=== PATIENT | female | born 2000 | race Caucasian/White ===

== ENCOUNTER 2018-01-13 18:52 | Emergency (ER) | payer OTHER ==
[~2018-01-13] VITALS: Ht 162.6 cm; Wt 66.1 kg
[~2018-01-13 18:52] MED LIST: OXYC-57 PO
[2018-01-13 18:54] VITALS: TEMP 36.3; Ht 162.6 cm; Wt 66.1 kg
[2018-01-13] MEDS ORDERED: ACETAMINOPHEN 500 MG TAB PO STA (18:59)
[2018-01-13 19:26] LABS: BASO % 0.5 %; BASO ABS # 0.03 K/uL (0-0.2); EOS % 1.8 %; EOS ABS # 0.11 K/uL (0-0.5); HEMATOCRIT 41.4 % (37-47); HEMOGLOBIN 14.1 g/dL (12.0-16.0); LYMPH % 44.8 %; LYMPH ABS # 2.74 K/uL (1.2-3.4); MEAN CELL VOLUME 92.8 fL (80-100); MEAN CORPUSCULAR HEMOGLOBIN 31.6 pg (25-34); MEAN CORPUSCULAR HGB CONC 34.1 g/dl (32-36); MONO ABS # 0.43 K/uL (0.11-0.59); NEUT % 45.9 %; NEUT ABS # 2.81 K/uL (1.4-6.5); PLATELET COUNT 243 K/uL (130-400); RED CELL DISTRIBUTION WIDTH CV 12.1 % (11.5-14.5); RED CELL DISTRIBUTION WIDTH SD 41.2 fL (36.4-46.3); WHITE BLOOD COUNT 6.12 K/uL (4.8-10.8)
--- NOTE | 2018-01-13 19:28 | EMERGENCY ROOM VISIT NOTE ---
History Report prepared by Corey: Devi Enriquez Under the Supervision of: Dr. Keyon Washington M.D. First contact with patient: 18:57 Chief Complaint: HEADACHE Stated Complaint: NUMBNESS,DISORIENTATION,HEADACHE History of Present Illness The patient is a 17 year old female who presents to the Emergency Room with complaints of persistent headache that began two hours ago. She rates her pain a 3/10 in severity. She notes that she suddenly became lightheaded and disoriented. She then developed speech issues in which she could not answer questions. Per mother, the patient tried to send her a text message, though it did not make any sense. The patient states that she could not answer a family members question about where she went to school. She reports that she then developed right arm numbness that lasted for 20 minutes. She notes the headache followed the numbness. She notes the disorientation and speech issues lasted for one hour. She denies any other focal numbness to any other extremity. She denies any facial numbness. She denies any past similar symptoms. She notes there was nausea for a couple of minutes while in a car for seven minutes. She denies any motion sickness in the past. She notes dizziness when standing up. She notes that her thought processes are improved. She denies taking any medications to improve her headache. The patient notes that she was exercising this past week and randomly developed a bruise that has since resolved on her abdomen. She also notes a bump to her right ear. She denies any head injuries. She denies any underlying medical problems. She denies any history or family history of migraines. She denies any recent tick bites. Per mother, ticks are common at their home. Source of History: patient, parent Onset: two hours ago Position: head Symptom Intensity: 3/10 Quality: ache Timing: other (persistent) Associated Symptoms: + nausea, + numbness (right arm) Note: She denies any head injuries or facial numbness. She notes dizziness, disorientation, speech issues, and lightheadedness. Review of Systems See HPI for pertinent positives & negatives. A total of 10 systems reviewed and were otherwise negative. Past Medical & Surgical Medical Problems: (1) Exercise-induced asthma Surgical Problems: (1) H/O removal of cyst (2) Hx of tonsillectomy Family History Cancer Diabetes mellitus FHx: lung disease Social History Smoking Status: Never Smoker Smokeless Tobacco Use: No Alcohol Use: none Drug Use: none Marital Status: single Housing Status: lives with family Occupation Status: student Current/Historical Medications Scheduled Control Pills ( Control Pills), 1 TAB PO DAILY Allergies Coded Allergies: Penicillin G (Verified Allergy, Unknown, HIVES, 09/04/15) Physical Exam Vital Signs Date Time Temp Pulse Resp B/P (MAP) Pulse Ox O2 Delivery O2 Flow Rate FiO2 01/13/18 21:36 67 16 110/67 98 01/13/18 20:30 72 16 115/76 100 Room Air 01/13/18 18:54 36.3 85 16 156/99 100 Room Air Physical Exam GENERAL: Patient is in no acute distress. HEENT: No acute trauma, normocephalic atraumatic, mucous membranes moist, no nasal congestion, no scleral icterus. Pupils are equal, round, and reactive to light. No afferent pupillary defect. NECK: No stridor, no adenopathy, no meningismus, trachea is midline. LUNGS: Clear to auscultation bilaterally, no wheeze, no rhonchi, breath sounds equal. HEART: Without murmurs gallops or rubs, regular rate and rhythm. ABDOMEN: Soft, nontender, bowel sounds positive, no hernias, no peritonitis. EXTREMITIES: No cyanosis or edema, full range of motion of all the joints without pain or difficulty, no signs for acute trauma. NEUROLOGIC: Oriented x 3, no acute motor or sensory deficits, no focal weakness. No facial droop or slurred speech. No pronator drift or cerebellar dysfunction. SKIN: No rash, no jaundice, no diaphoresis. Medical Decision & Procedures ER Provider Diagnostic Interpretation: Radiology results as stated below per my review and radiologist interpretation: MRI OF THE BRAIN WITHOUT IV CONTRAST CLINICAL HISTORY: Headache. Change in mental status. COMPARISON STUDY: No priors. TECHNIQUE: MRI of the brain was performed utilizing various T1 and T2-weighted sequences in the axial, sagittal, and coronal planes. IV contrast was not administered for this examination. FINDINGS: Brain parenchyma: The brain parenchyma is normal in appearance. There is no hemorrhage or mass effect. There is no restricted diffusion to suggest acute ischemia. Greco-white matter differentiation is preserved. No extra-axial fluid collection is seen. The cerebellar tonsils are normal in configuration. Ventricles, sulci, and cisterns: Normal in configuration. Pituitary and sella: Unremarkable. Intracranial vasculature: Normal flow voids are maintained at the skull base. Orbits: The bony orbits are grossly intact. Orbital contents are normal in appearance. Sinuses and mastoids: Mild mucosal thickening is seen within the right ethmoid sinus. The remaining paranasal sinuses and mastoid air cells are clear. Calvarium: Unremarkable. Cervical cord: Partially visualized cervical spinal cord is normal in morphology and signal intensity. IMPRESSION: No acute intracranial abnormality. Electronically signed by: Keyon Neumann M.D. 01/13/2018 9:02 PM Dictated Date/Time: 01/13/2018 9:00 PM Laboratory Results 01/13/18 19:14 Red Blood Count 4.46, Mean Corpuscular Volume 92.8, Mean Corpuscular Hemoglobin 31.6, Mean Corpuscular Hemoglobin Concent 34.1, Mean Platelet Volume 10.0, Neutrophils (%) (Auto) 45.9, Lymphocytes (%) (Auto) 44.8, Monocytes (%) (Auto) 7.0, Eosinophils (%) (Auto) 1.8, Basophils (%) (Auto) 0.5, Neutrophils # (Auto) 2.81, Lymphocytes # (Auto) 2.74, Monocytes # (Auto) 0.43, Eosinophils # (Auto) 0.11, Basophils # (Auto) 0.03 01/13/18 19:14 Test 01/13/18 19:14 01/13/18 19:25 White Blood Count 6.12 K/uL (4.8-10.8) Red Blood Count 4.46 M/uL (4.2-5.4) Hemoglobin 14.1 g/dL (12.0-16.0) Hematocrit 41.4 % (37-47) Mean Corpuscular Volume 92.8 fL (80-100) Mean Corpuscular Hemoglobin 31.6 pg (25-34) Mean Corpuscular Hemoglobin Concent 34.1 g/dl (32-36) Platelet Count 243 K/uL (130-400) Mean Platelet Volume 10.0 fL (7.4-10.4) Neutrophils (%) (Auto) 45.9 % Lymphocytes (%) (Auto) 44.8 % Monocytes (%) (Auto) 7.0 % Eosinophils (%) (Auto) 1.8 % Basophils (%) (Auto) 0.5 % Neutrophils # (Auto) 2.81 K/uL (1.4-6.5) Lymphocytes # (Auto) 2.74 K/uL (1.2-3.4) Monocytes # (Auto) 0.43 K/uL (0.11-0.59) Eosinophils # (Auto) 0.11 K/uL (0-0.5) Basophils # (Auto) 0.03 K/uL (0-0.2) RDW Standard Deviation 41.2 fL (36.4-46.3) RDW Coefficient of Variation 12.1 % (11.5-14.5) Immature Granulocyte % (Auto) 0.0 % Immature Granulocyte # (Auto) 0.00 K/uL (0.00-0.02) Anion Gap 4.0 mmol/L (3-11) Est Creatinine Clear Calc Drug Dose 92.0 ml/min Estimated GFR () 104.6 Estimated GFR (Non- 90.3 BUN/Creatinine Ratio 11.0 (10-20) Calcium Level 9.2 mg/dl (8.5-10.1) Total Bilirubin 0.6 mg/dl (0.2-1) Aspartate Amino Transf (AST/SGOT) 21 U/L (15-37) Alanine Aminotransferase (ALT/SGPT) 25 U/L (12-78) Alkaline Phosphatase 50 U/L (45-117) Total Protein 8.0 gm/dl (6.4-8.2) Albumin 4.1 gm/dl (3.4-5.0) Globulin 3.9 gm/dl (2.5-4.0) Albumin/Globulin Ratio 1.0 (0.9-2) Thyroid Stimulating Hormone (TSH) 1.250 uIu/ml (0.300-4.500) Human Chorionic Gonadotropin, Qual NEG (NEG) Lyme Disease IgG Antibody NEG (NEG) Lyme Disease IgM Antibody NEG (NEG) Urine Color YELLOW Urine Appearance CLEAR (CLEAR) Urine pH 7.0 (4.5-7.5) Urine Specific [place] 1.006 (1.000-1.030) Urine Protein NEG (NEG) Urine Glucose (UA) NEG (NEG) Urine Ketones NEG (NEG) Urine Occult Blood NEG (NEG) Urine Nitrite NEG (NEG) Urine Bilirubin NEG (NEG) Urine Urobilinogen NEG (NEG) Urine Leukocyte Esterase NEG (NEG) Laboratory results reviewed by me. Medications Administered Medications (Trade) Dose Ordered Sig/Racheal Route Start Time Stop Time Status Last Admin Dose Admin Acetaminophen (Tylenol Tab) 1,000 mg NOW STAT PO 01/13/18 18:59 01/13/18 19:10 DC 01/13/18 18:59 1,000 MG ECG Per My Interpretation Indication: other (dizziness) Rate (beats per minute): 71 Rhythm: normal sinus Findings: no ectopy (No PVC), other (No ST elevation. Baseline artifact.) ED Course 1857: The patient was evaluated in room B2. A complete history and physical exam was performed. 1858: Ordered Tylenol 1,000 mg PO 2046: I reassessed the patient at this time. I spoke with the patients parents. The patient is still at MRI. 2121: I reassessed the patient at this time. I discussed the results and treatment plan with the patient and her parents. I answered all pertaining questions that she had. She expressed understanding and verbalized agreement. The patient will be discharged home. 2123: Ordered Motrin 600 mg PO--pt refused. Medical Decision The patient is a 17 year old female who presents to the ED with complaints of headache. Differential diagnoses considered include migraine headache, complex migraine, Lyme disease, infection, UTI, dysrhythmia, orthostasis, intracranial bleeding, intracranial mass, and stroke. There is no leukocytosis or concerning anemia. No significant electrolyte abnormality, kidney failure or hepatitis. Lyme disease testing was negative. The patient appeared to be in a euthyroid state. testing was negative. Urinalysis did not show evidence for infection. EKG showed a sinus rhythm, no acute ischemia. Brain MRI showed no mass, stroke or bleeding. On my exam, there were no focal neurologic deficits. The patient did not appear confused. The patient was given oral Tylenol for her mild headache. I did offer Motrin as well but she declined this medication. The patient is only now complaining of a mild headache, her other symptoms have resolved. Her workup is benign and reassuring. I suspect the patient may have had a complex migraine. I do think the patient is safe for discharge with outpatient follow-up. If things are worsening, she can return. Medication Reconcilliation Current Medication List: was personally reviewed by me Blood Pressure Screening Patient's blood pressure: Elevated blood pressure Blood pressure disposition: Elevated BP felt to be situational Impression Primary Impression: Headache Additional Impressions: Confusion Right arm numbness Scribe Attestation The scribe's documentation has been prepared under my direction and personally reviewed by me in its entirety. I confirm that the note above accurately reflects all work, treatment, procedures, and medical decision making performed by me. Departure Information Dispostion Home / Self-Care Referrals No Doctor, Assigned (PCP) Forms HOME CARE DOCUMENTATION FORM, IMPORTANT VISIT INFORMATION Patient Instructions My [facility] Additional Instructions proper sleep rest stay well hydrated tylenol and or motrin for pain see evelyn reeves this week lab testing was all ok lyme testing was negative brain MRI was ok return if worsening Problem Qualifiers
[2018-01-13] MEDS ORDERED: BCPILLS PO (19:34)
[2018-01-13 19:45] LABS: ALBUMIN 4.1 gm/dl (3.4-5.0); CALCIUM 9.2 mg/dl (8.5-10.1); CREATININE 0.92 mg/dl (0.60-1.20); POTASSIUM 3.6 mmol/L (3.5-5.1)
--- NOTE | 2018-01-13 21:04 | DIAGNOSTIC IMAGING REPORT ---
MRI OF THE BRAIN WITHOUT IV CONTRAST CLINICAL HISTORY: Headache. Change in mental status. COMPARISON STUDY: No priors. TECHNIQUE: MRI of the brain was performed utilizing various T1 and T2-weighted sequences in the axial, sagittal, and coronal planes. IV contrast was not administered for this examination. FINDINGS: Brain parenchyma: The brain parenchyma is normal in appearance. There is no hemorrhage or mass effect. There is no restricted diffusion to suggest acute ischemia. Greco-white matter differentiation is preserved. No extra-axial fluid collection is seen. The cerebellar tonsils are normal in configuration. Ventricles, sulci, and cisterns: Normal in configuration. Pituitary and sella: Unremarkable. Intracranial vasculature: Normal flow voids are maintained at the skull base. Orbits: The bony orbits are grossly intact. Orbital contents are normal in appearance. Sinuses and mastoids: Mild mucosal thickening is seen within the right ethmoid sinus. The remaining paranasal sinuses and mastoid air cells are clear. Calvarium: Unremarkable. Cervical cord: Partially visualized cervical spinal cord is normal in morphology and signal intensity. IMPRESSION: No acute intracranial abnormality. Electronically signed by: Keyon Neumann M.D. 01/13/2018 9:02 PM Dictated Date/Time: 01/13/2018 9:00 PM
[2018-01-13] MEDS ORDERED: IBUPROFEN 600 MG TAB PO STA (21:24)
[2018-01-13 21:36] VITALS: BP 110/67; PULSE 67; O2SAT 98
== END 2018-01-13 21:37 | disposition home or self-care (01) ==
LOC: C.EDB 18:53
DX: R51 Headache (principal); R41.0 Disorientation, unspecified; R20.0 Anesthesia of skin; J45.990 Exercise induced bronchospasm; Z79.3 Long term (current) use of hormonal contraceptives; Z88.0 Allergy status to penicillin